=== PATIENT | female | born 1995 | race African-American/Black ===

== ENCOUNTER 2018-04-22 15:00 | Emergency (ER) | payer OTHER ==
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
[2018-04-22 19:32] VITALS: BP 138/97
== END 2018-04-22 19:30 | disposition home or self-care (01) ==
LOC: ER 15:00
DX: S16.1XXA Strain of muscle, fascia and tendon at neck level, initial encounter (principal); S40.021A Contusion of right upper arm, initial encounter; S46.911A Strain of unspecified muscle, fascia and tendon at shoulder and upper arm level, right arm, initial encounter; V43.62XA Car passenger injured in collision with other type car in traffic accident, initial encounter
CPT/HCPCS: 72040; 99284